=== PATIENT | male | born 1950 | race Caucasian/White ===

== ENCOUNTER 2020-12-12 15:54 | Observation (INO) | payer MEDICARE ==
[~2020-12-12] VITALS: Ht 190.5 cm; Wt 118.0 kg
[~2020-12-12 15:54] MED LIST: ANDRO 100100 MG/ML IJ; ASPIRIN 81M81 MG/TA2 PO; CIALIS10 MG PO; DEPO-TESTOS100 MG/ML IM; EFFIENT10 MG PO; GLUCOPHAGE XR500 M1 PO; HYGROTON 2525 MG/TAB PO; HYGROTON25 MG PO; LIPITOR20 MG PO; MOTRIN 800800 MG/TAB PO; MULTIPLE VITAMI1 T10 PO; MULTIPLE VITAMI1 TA5 PO; NEURONTIN300 MG/CAP PO; NITROSTAT0.4 MG/TAB SL; NORCO 325 MG-7.1 TAB PO; PLAVIX 75MG TAB75 MG PO; ROXICODONE 55 MG/TAB PO; SALICYLIC ACID TOP; TOPROL XL200 MG PO; TYLENOL 8 HR PO; VIAGRA50 M1 PO; ZESTRIL40 MG PO; ZOCOR 40MG40 MG PO; ZYRTEC 10MG10 MG PO
[2020-12-12 16:54] VITALS: BP 169/87; PULSE 72; TEMP 97.8
[2020-12-12] MEDS ORDERED: METAMUCIL3.4 GM/DOS PO (16:54)
--- NOTE | 2020-12-12 17:33 | NUR ---
Pt admitted to medical unit rm [id number] from [facility]. Pt A&O x 4, ambulates in room with steady gait, denies pain at this time. Saline lock IV to right AC without s/s of complications. POC reviewed with pt. Provider aware of pt's arrival. No further needs reported. Call light in reach.
[2020-12-12 19:52] VITALS: BP 194/84; PULSE 64; TEMP 98
--- NOTE | 2020-12-12 20:00 | NUR ---
Assessment complete. PAtient alert and oriented and states he has mild, right-sided chest discomfort whenever he exerts himself but is comfortable at rest. Other assessment details WNL. Patient on RA and tolerating with no complaints of SOA. Call light in reach, will continue to monitor.
[2020-12-13] VITALS (14 sets, daily range): BP systolic 141–173; BP diastolic 77–99; PULSE 64–78; TEMP 97.7–98.6
--- NOTE | 2020-12-13 06:42 | NUR ---
Patient has had an uneventful night with no complaints of chest pain. Pressures have been elevated but, upon reassessment, have not required PRN hydralazine. No new concerns. Pt has been NPO since midnight.
[2020-12-13 06:58] LABS: BASO % 0.6 % (0.0-2.0); EOS # 0.3 (0.0-0.7); EOS % 4.9 % (0-4.0); GRAN # 3.1 (1.4-6.5); GRAN % 57.6 % (42.2-75.2); HEMATOCRIT 40.5 % (42.0-52.0); LYMPH # 1.4 (1.2-3.4); LYMPH % 26.3 % (20.0-51.0); MEAN CELL VOLUME 94 fl (80.0-100.0); MEAN CORPUSCULAR HEMOGLOBIN 32 pg (27.0-31.0); MEAN CORPUSCULAR HGB CONC 35 g/dl (33.0-37.0); MEAN PLATELET VOLUME 9.9 fl (7.4-10.4); MONO # 0.6 (0.1-0.6); MONO % 10.4 % (1.7-9.3); PLATELET COUNT 158 K/mm3 (130-400); RED BLOOD COUNT 4.33 M/mm3 (4.20-5.60); REDCELL DISTRIBUTION WIDTH-CV 12.5 % (11.5-14.5)
[2020-12-13 07:23] LABS: CALCIUM 9.1 mg/dL (8.4-10.2); CREATININE, serum 0.85 mg/dL (0.72-1.25); POTASSIUM 3.7 mmol/L (3.5-4.5)
--- NOTE | 2020-12-13 08:45 | NUR ---
PT PLEASANT, AOX4, REPORTS CHEST TIGHTNESS WITH MOVEMENT BUT "IT COMES AND GOES". PT ASSESSMENT PERFORMED, AFTER TALKING TO CARDIOLOGY CONSENT WAS OBTAINED FOR HEART CATH. NO OTHER NEEDS
--- NOTE | 2020-12-13 09:32 | NUR ---
PT TAKEN DOWN FOR HEART CATHETERIZATION. 1/2NS PULLED FOR PREOP FLUID, CONSENT OBTAINED
--- NOTE | 2020-12-13 10:00 | NUR ---
SEE MERGE DOCUMENTATION FOR MEDICATION ADMINISTRATION TIMES AND INTRA/POST PROCEDURE SEDATION ASSESSMENTS.
--- NOTE | 2020-12-13 11:03 | NUR ---
PT RETURNED FROM TAPE DECK INSTALLER, RADIAL SITE VISUALIZED WITH CHAYO FLETCHER. PT AWAKE AND ALERT, VITALS STABLE AND PT ATTACHED TO POST OPS. NO OTHER NEEDS
--- NOTE | 2020-12-13 13:41 | NUR ---
2ML DEFLATED OUT OF R RADIAL BAND. NO BLEEDING OR OOZING NOTED.
--- NOTE | 2020-12-13 13:47 | NUR ---
Primary nurse was assisted with [id number] patient care by [employer] student China Artis and [employer] instructor Katelyn Nava MSN, RN.
--- NOTE | 2020-12-13 14:10 | NUR ---
2 MORE MLS REMOVED FROM BAND, 10ML LEFT IN BAND.
--- NOTE | 2020-12-13 14:57 | NUR ---
7ML OF AIR LEFT IN BAND
--- NOTE | 2020-12-13 16:14 | NUR ---
BAND FULLY DEFLATED, NO OTHER NEEDS
--- NOTE | 2020-12-13 16:21 | NUR ---
Patient was sitting in his chair when SW met with him to discuss discharge planning. 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 Patient reports he and his live in [facility] where he has no DME's and he is fully independent with ADL's. He has no oxygen needs. His PCP is Dr. Ricardo Benavides and he has no difficulty getting or affording his medications at [facility] in [facility]. Patient reports his MPOA is his , Shahnaz ([phone]) but they did not provide the hospital with it. *D/C Plan: anticipate pt will d/c home pending tests
--- NOTE | 2020-12-13 17:38 | NUR ---
RADIAL BAND REMOVED FROM ARM, NO OOZING FROM SITE AND COVERED WITH BANDAID. PT DENIES PAIN EXCEPT WITH ACTIVITY. CT/PE SCHEDULED FOR TOMORROW. NO OTHER NEEDS
--- NOTE | 2020-12-13 20:00 | NUR ---
Assessment complete. Patient alert and oriented with no complaints of chest pain. HR normal/regular and lung sounds clear. No edema noted and pulses intact in all extremities. Right wrist heart cath access site is CDI and TR band has been removed with no signs of bleeding. Call light in reach, will continue to monitor.
[2020-12-14 05:00] VITALS: BP 154/78; PULSE 77; TEMP 98.2
[2020-12-14 06:48] LABS: BASO % 0.4 % (0.0-2.0); EOS # 0.3 (0.0-0.7); EOS % 4.5 % (0-4.0); GRAN # 3.4 (1.4-6.5); HEMATOCRIT 40.2 % (42.0-52.0); HEMOGLOBIN 13.9 g/dl (13.5-18.0); LYMPH # 1.4 (1.2-3.4); LYMPH % 24.6 % (20.0-51.0); MEAN CELL VOLUME 92 fl (80.0-100.0); MEAN CORPUSCULAR HEMOGLOBIN 32 pg (27.0-31.0); MEAN CORPUSCULAR HGB CONC 35 g/dl (33.0-37.0); MEAN PLATELET VOLUME 9.4 fl (7.4-10.4); MONO # 0.5 (0.1-0.6); MONO % 9.3 % (1.7-9.3); PLATELET COUNT 159 K/mm3 (130-400); RED BLOOD COUNT 4.35 M/mm3 (4.20-5.60); REDCELL DISTRIBUTION WIDTH-CV 12.5 % (11.5-14.5)
[2020-12-14 07:03] LABS: CALCIUM 9.1 mg/dL (8.4-10.2); CREATININE, serum 0.89 mg/dL (0.72-1.25); POTASSIUM 3.8 mmol/L (3.5-4.5)
[2020-12-14 08:14] VITALS: BP 154/83; PULSE 79; TEMP 98.5
--- NOTE | 2020-12-14 08:30 | NUR ---
Assessment complete. Pt sitting up in chair, A&O x 4, reports slight tightness in left chest, stating "same as it has been." Saline lock IV to right AC without s/s of complications. No further needs reported. Call light in reach.
[2020-12-14] MEDS ORDERED: LIPITOR 80MG80 MG PO (10:10)
[2020-12-14] MEDS ORDERED: PROTONIX 40MG T40 MG PO (10:33)
--- NOTE | 2020-12-14 12:00 | NUR ---
Discharge instructions reviewed with pt regarding change and new medications, and follow-up appointments. Pt and pt's verbalize understanding. Questions invited and answered. Pt discharged home, ambulates out of facility accompanied by this nurse and pt's .
--- NOTE | 2020-12-14 13:38 | NUR ---
[employer] Bi Developer attended clinical rounds and patient to discharge home today.
== END 2020-12-14 12:00 | disposition home or self-care (01) ==
LOC: MEDICAL 15:54
PROVIDERS: ADMIT Student in an Organized Health Care Education/Training Program
DX: R07.89 Other chest pain (principal); I25.10 Atherosclerotic heart disease of native coronary artery without angina pectoris; I10 Essential (primary) hypertension; E78.5 Hyperlipidemia, unspecified; F10.20 Alcohol dependence, uncomplicated; G89.29 Other chronic pain; M54.9 Dorsalgia, unspecified; E11.9 Type 2 diabetes mellitus without complications; Z79.82 Long term (current) use of aspirin; Z79.899 Other long term (current) drug therapy; Z79.84 Long term (current) use of oral hypoglycemic drugs; Z79.891 Long term (current) use of opiate analgesic; Z79.02 Long term (current) use of antithrombotics/antiplatelets
CPT/HCPCS: 99232-AI; C1769; C1887; G0378; J0360; J1644; J2250; J3010; Q9967

== ENCOUNTER 2021-10-23 07:06 | Observation (INO) | payer MEDICARE, OTHER ==
[2021-10-23] VITALS (20 sets, daily range): BP systolic 115–180; BP diastolic 50–97; PULSE 54–84; TEMP 97.6–98.6
[~2021-10-23] VITALS: Ht 190.5 cm; Wt 117.2 kg
[~2021-10-23 07:06] MED LIST changes: +LIPITOR 80MG80 MG PO; +METAMUCIL3.4 GM/DOS PO; +PROTONIX 40MG T40 MG PO
[2021-10-23 07:32] LABS: BASO # 0.1 K/mm3 (0.0-0.2); BASO % 0.6 % (0.0-2.0); EOS # 0.2 K/mm3 (0.0-0.7); EOS % 3.1 % (0.0-4.0); GRAN # 4.5 K/mm3 (1.4-6.5); GRAN % 56.9 % (42.2-75.2); HEMATOCRIT 43.1 % (42.0-52.0); HEMOGLOBIN 14.9 g/dl (13.5-18.0); LYMPH # 2.2 K/mm3 (1.2-3.4); LYMPH % 28.6 % (20.0-51.0); MEAN CELL VOLUME 91 fl (80.0-100.0); MEAN CORPUSCULAR HEMOGLOBIN 32 pg (27-31); MEAN CORPUSCULAR HGB CONC 35 g/dl (33.0-37.0); MEAN PLATELET VOLUME 9.6 fl (7.4-10.4); MONO # 0.8 K/mm3 (0.1-0.6); MONO % 10.7 % (1.7-9.3); PLATELET COUNT 172 K/mm3 (130-400); RED BLOOD COUNT 4.73 M/mm3 (4.20-5.60); REDCELL DISTRIBUTION WIDTH-CV 12.3 % (11.5-14.5)
[2021-10-23 07:49] LABS: ALBUMIN 3.7 gm/dL (3.4-4.8); BILIRUBIN,TOTAL 0.7 mg/dL (0.2-1.2); CALCIUM 9.4 mg/dL (8.4-10.2); CREATININE, serum 0.89 mg/dL (0.72-1.25); POTASSIUM 4.2 mmol/L (3.5-4.5); TOTAL PROTEIN 7.3 gm/dL (6.2-8.1)
[2021-10-23 07:59] LABS: TROPONIN-I 0.771 ng/mL (0.00-0.033)
--- NOTE | 2021-10-23 10:48 | NUR ---
See merge for all medication, assessment, intervention, and vital sign times.
[2021-10-23] MEDS ORDERED: GLUCOPHAGE XR500 M1 PO (12:10)
[2021-10-23] MEDS ORDERED: LIPITOR 80MG80 MG PO (12:10)
[2021-10-23] MEDS ORDERED: ZESTRIL 10MG10 MG PO (12:11)
--- NOTE | 2021-10-23 12:51 | NUR ---
Radial Heart Cath- Patient was completing Blood pressure monitoring so a breif review of discharge instructions for radial heart catheterization was covered. Cleaning site with mild soap and water, pat dry. Discussed monitoring for redness, hot to touch, inflammation, or temperature >100.4. Discussed when to contact the physician for signs of symptoms of complications or AR. Handout also reviews risk factors for heart disease. Covered applicable modifiable risk factors including the following: tobacco cessation, HTN, hyperlipidemia, diabetes, overweight/obesity, sedentary lifestyle, and stress/depression. Patient verbalized understanding. Referral sent to [facility] with patient s permission. Approx. 5 minutes of chart review, 3 minutes of face to face time with patient.
--- NOTE | 2021-10-23 14:39 | NUR ---
Youth Development Specialist met with patient to discuss discharge planning. Patient lives in [place] with his , Shahnaz (ph#[phone]) and sees Dr. Ricardo Benavides for primary care. Patient obtains medications from [facility] in [place] with no difficulties. Patient does not use any DME and reports independence with ADLS. Patient states he has to lay flat for another hour, then can get up out of bed. Patient advised his DPOA-HC would be his , Shahnaz and son, Volodymyr who lives in [place]. Patient plans to return home at time of discharge. Discharge Plan: Home
--- NOTE | 2021-10-23 18:46 | NUR ---
PT PROGRESING WELL AFTER CARDIAC CATH, NO SIGNS OF BLEEDING OR HEMATOMA AT FEMORAL PUNCTURE SITE. BP 168/90 AT 1800, WITHOUT HEADACHE OR DIZZINESS. DR SMALLS NOTIFIED AND LISINOPRIL ORDERED. PT IN CHAIR EATING DINNER, CALL LIGHT WITHIN REACH.
--- NOTE | 2021-10-23 23:58 | NUR ---
Pt alert and oriented, follows commands, pleasant. Sitting up in chair. Denies chest pain/SOB at this time. Pt denies pain at right femoral cardiac catheterization site. Right femoral site soft/non-tender/non-edematous. No drainage/bleeding noted at site. Pt has a small black/purple brusie noted to the left of the gauze that is soft and non-painful. Pt has steady gait. VS stable. On room air. CIWA protocol in place. Q2hr VS being monitored. Shift assessment performed. Medications administered per orders and education provided. Pt's feet have some discoloration, no other significant skin issues noted. Tolerating PO. Telemetry on. Bed low and locked, call salcedo within reach. No other concerns at this time.
[2021-10-24 01:46] VITALS: BP 145/84; PULSE 79
[2021-10-24 04:10] LABS: BASO % 0.5 % (0.0-2.0); EOS # 0.2 K/mm3 (0.0-0.7); EOS % 2.9 % (0.0-4.0); GRAN % 63.5 % (42.2-75.2); HEMATOCRIT 39.2 % (42.0-52.0); HEMOGLOBIN 14.1 g/dl (13.5-18.0); LYMPH # 1.8 K/mm3 (1.2-3.4); LYMPH % 22.7 % (20.0-51.0); MEAN CELL VOLUME 90 fl (80.0-100.0); MEAN CORPUSCULAR HEMOGLOBIN 32 pg (27-31); MEAN CORPUSCULAR HGB CONC 36 g/dl (33.0-37.0); MEAN PLATELET VOLUME 9.7 fl (7.4-10.4); MONO # 0.8 K/mm3 (0.1-0.6); MONO % 10.1 % (1.7-9.3); PLATELET COUNT 161 K/mm3 (130-400); RED BLOOD COUNT 4.38 M/mm3 (4.20-5.60); REDCELL DISTRIBUTION WIDTH-CV 12.3 % (11.5-14.5)
[2021-10-24 04:21] VITALS: BP 144/78; PULSE 76; TEMP 98.7
[2021-10-24 04:46] LABS: CALCIUM 8.9 mg/dL (8.4-10.2); CREATININE, serum 0.81 mg/dL (0.72-1.25); POTASSIUM 3.7 mmol/L (3.5-4.5)
[2021-10-24 05:39] VITALS: BP 148/84; PULSE 78; TEMP 97.8
--- NOTE | 2021-10-24 05:52 | NUR ---
No adverse events overnight. Femoral site soft. No edema/hematoma/bleeding/tenderness noted. CIWA protocol continued. VS stable. On room air. Tolerating PO. Up to void overnight. Bed low and locked, call salcedo within reach. No other concerns at this time.
[2021-10-24] MEDS ORDERED: ZESTRIL40 MG PO (07:18)
[2021-10-24] MEDS ORDERED: BRILINTA90 MG PO (07:18)
[2021-10-24 07:33] VITALS: BP 127/76; PULSE 79; TEMP 98.3
--- NOTE | 2021-10-24 08:33 | NUR ---
Patient alert and oriented, independent in room. On room air. Refused breakfast, stated " I never eat breakfast". at bedside. No complaints of pain, just "pulling of 'things' from bandage" at cath site. Hair caught in bandage, causing discomfort. Patient wanting to be discharged. Lungs clear, no difficulty breathing, shortness of breath. Patient in good spirits today.
--- NOTE | 2021-10-24 09:59 | NUR ---
cripple worker met with patient to complete intake and discuss discharge plan. Patient reports that he lives at home with his Shahnaz ([phone]) in [place]. Shahnaz present at bedside. Patient is independent with his ADL's and does not utilize any DME to assist with mobility. He has no home oxygen needs. PCP is Dr. Benavides and he utilizes [facility] in . Patient denies having any home health services at this time. Patient is planning on discharging home later this morning. Discharge plan: Home with .
--- NOTE | 2021-10-24 10:40 | NUR ---
Patient IV discontinued, tele removed. Patient discharge instructions given, patient and spouse vocalized understanding with no questions or concerns. Patient walked with escourt to Visitor entrance.
== END 2021-10-24 10:15 | disposition home or self-care (01) ==
LOC: COL.ER 07:06 → MEDICAL 10:57
PROVIDERS: Family Medicine; ADMIT Internal Medicine
DX: I21.4 Non-ST elevation (NSTEMI) myocardial infarction (principal); I25.110 Atherosclerotic heart disease of native coronary artery with unstable angina pectoris; E11.9 Type 2 diabetes mellitus without complications; I10 Essential (primary) hypertension; E78.5 Hyperlipidemia, unspecified; F10.20 Alcohol dependence, uncomplicated; G89.29 Other chronic pain; M54.9 Dorsalgia, unspecified; Z95.5 Presence of coronary angioplasty implant and graft; Z79.84 Long term (current) use of oral hypoglycemic drugs; Z79.899 Other long term (current) drug therapy; Z79.82 Long term (current) use of aspirin
CPT/HCPCS: 99222-AI; 99239; C1760; C1769; C1887; C1894; C9600; G0378; J0583; J1815; J2250; J3010; Q9967